=== PATIENT | female | born 1990 | race Caucasian/White ===

== ENCOUNTER 2017-09-08 13:51 | Emergency (ER) | payer OTHER ==
[2017-09-08 16:01] LABS: Appearance,Urine Cloudy (Clear); Bacteria,Urine Rare /hpf; Bilirubin,Urine Negative (Negative); Glucose,Urine (UA) Negative (Negative); Ketones,Urine Negative (Negative); Leukocyte Esterase,Urine Negative (Negative); Mucus,Urine Few /hpf; Nitrite,Urine Negative (Negative); PH, Urine 6.5 (5.0-8.0); Particle Count 9708; Protein,Urine Negative (Negative); RBC,Urine 1 /hpf (0-5); Specific Gravity,Urine 1.019 (1.001-1.035); Squamous Epithelial Cell,Urine 13 /hpf (0-4); UA Billing (MACRO vs. MICRO) MICRO; WBC,Urine <1 /hpf (0-5)
--- NOTE | 2017-09-08 17:43 | US ---
EXAMINATION TYPE: US transvaginal DATE OF EXAM: 09/08/2017 COMPARISON: Previous study dated 01/15/2009. CLINICAL HISTORY: Pain. TECHNIQUE: Transvaginal (TV) Date of LMP: 08/06/2017 EXAM MEASUREMENTS: Uterus: 7.8 x 4.3 x 5.7 cm Endometrial Stripe: 1.0 cm Right Ovary: 3.9 x 1.4 x 3.1 cm Left Ovary: 3.6 x 2.5 x 3.3 cm 1. Uterus: Anteverted wnl 2. Endometrium: appears wnl 3. Right Ovary: wnl 4. Left Ovary: cystic area visualized measuring 2.0 x 1.8 x 1.7cm Spectral, color and waveform doppler imaging shows good arterial and venous flow within the ovaries ; there is no evidence for ovarian torsion. 5. Bilateral Adnexa: wnl 6. Posterior cul-de-sac: wnl Left ovarian cystica area seen measuring 2.0 x 1.8 x 1.7 cm IMPRESSION: LEFT OVARIAN CYST.
[2017-09-08] MEDS ORDERED: KETOROLAC 30 MG/ML 1 ML VIAL IVP STA (17:55)
[2017-09-08] MEDS ORDERED: HYDROcodone/APAP 5-325MG 1 EACH TAB PO STA (18:03)
--- NOTE | 2017-09-08 18:40 | ED ---
Abdominal Pain HPI - General Chief Complaint: Abdominal Pain Stated Complaint: Pain in right abdomen Time Seen by Provider: 09/08/17 15:10 Source: patient Mode of arrival: ambulatory Limitations: no limitations - History of Present Illness Initial Comments: 27-year-old female presenting for evaluation of right lower quadrant abdominal pain/pelvic pain for the last 4 days. She states she has been having this pain chronically for months however it is acutely worsening over the last 4 days and is further worsened by lifting, coughing, sneezing. She describes it as a sharp burning with intermittent stabbing pain. There is associated nausea but she denies any vomiting, fevers, chills, chest pain, shortness of breath, vaginal bleeding/discharge, dysuria. She is taking Motrin without relief. She has had previous tubal ligation which resulted in cyst formation and had her ovarian tubes surgically removed. She also states that her surgeon at the time noted there was some abnormality on her bowel but it was on able to describe it or remember its technical definition. - Related Data Home Medications Medication Instructions Recorded Confirmed Cyanocobalamin [Vitamin B-12] 500 mcg PO DAILY 09/08/17 09/08/17 Dextroamphetamine/Amphetamine 30 mg PO BID 09/08/17 09/08/17 [Adderall] traMADol HCL [Ultram] 50 mg PO TID 09/08/17 09/08/17 Previous Rx's Medication Instructions Recorded Ibuprofen [Motrin] 800 mg PO Q12HR #30 tab 09/08/17 Allergies Allergy/AdvReac Type Severity Reaction Status Date / Time amoxicillin Allergy Rash/Hives Verified 09/08/17 15:42 erythromycin base Allergy Dyspnea Verified 09/08/17 15:42 Pork/Porcine Containing Allergy Unknown Verified 09/08/17 15:42 Products [Pork] latex AdvReac Rash/Hives Verified 09/08/17 15:42 Review of Systems ROS Statement: Those systems with pertinent positive or pertinent negative responses have been documented in the HPI. ROS Other: All systems not noted in ROS Statement are negative. Constitutional: Denies: fever, chills Eyes: Denies: eye pain, vision change ENT: Denies: ear pain, throat pain Respiratory: Denies: cough, dyspnea Cardiovascular: Denies: chest pain, palpitations Endocrine: Denies: fatigue, polydipsia Gastrointestinal: Reports: abdominal pain, nausea. Denies: vomiting, diarrhea, constipation, hematemesis, melena, hematochezia Genitourinary: Denies: urgency, dysuria Musculoskeletal: Denies: back pain, arthralgia, myalgia Skin: Denies: rash, lesions Neurological: Denies: headache, weakness Psychiatric: Denies: anxiety, depression Hematological/Lymphatic: Denies: easy bleeding, easy bruising Past Medical History Past Medical History: Fibromyalgia History of Any Multi-Drug Resistant Organisms: None Reported Additional Past Surgical History / Comment(s): bilateral fallopian tubes removed Past Psychological History: No Psychological Hx Reported Smoking Status: Never smoker Past Alcohol Use History: None Reported Past Drug Use History: None Reported General Exam Limitations: no limitations General appearance: alert, in no apparent distress Head exam: Present: atraumatic, normocephalic, normal inspection Eye exam: Present: normal appearance, PERRL, EOMI. Absent: scleral icterus, conjunctival injection, periorbital swelling ENT exam: Present: normal exam, mucous membranes moist Neck exam: Present: normal inspection. Absent: tenderness, meningismus, lymphadenopathy Respiratory exam: Present: normal lung sounds bilaterally. Absent: respiratory distress, wheezes, rales, rhonchi, stridor Cardiovascular Exam: Present: regular rate, normal rhythm, normal heart sounds. Absent: systolic murmur, diastolic murmur, rubs, gallop, clicks GI/Abdominal exam: Present: soft, tenderness (RLQ/pelvic), normal bowel sounds. Absent: distended, guarding, rebound, rigid, diminished bowel sounds, organomegaly, mass, bruit, pulsatile mass, hernia Rectal exam: Present: deferred Extremities exam: Present: normal inspection, full ROM, normal capillary refill. Absent: tenderness, pedal edema, joint swelling, calf tenderness Back exam: Present: normal inspection Neurological exam: Present: alert, oriented X3, CN II-XII intact Psychiatric exam: Present: normal affect, normal mood Skin exam: Present: warm, dry, intact, normal color. Absent: rash Course Vital Signs 09/08/17 09/08/17 13:59 18:30 Temperature 97.4 F L 98.5 F Pulse Rate 85 72 Respiratory 18 16 Rate Blood Pressure 116/64 102/57 O2 Sat by Pulse 100 100 Oximetry Medical Decision Making - Medical Decision Making 27-year-old female presented for evaluation of right lower quadrant/ pelvic pain. Pain is been present for the last few months however acutely worsened over the last 4 days. Patient indicates that the pain is below her panty line in her pelvis and on physical exam the pain is reproducible to palpation. Abdomen is soft without peritoneal signs of guarding, rigidity, or rebound. Patient is in no apparent distress and vitals are within normal limits. Urinalysis is negative for infection and is also negative. Ultrasound of pelvis shows a left ovarian cyst however there is appropriate flow to bilateral kidneys. The patient was reevaluated and had improvement in her symptoms. She was informed of these results and through shared decision making it was determined that she would be discharged. She was advised to follow-up with the primary care physician that would be provided for her but was further given instructions to return if her symptoms should worsen or persist including but not limited to: Worsening abdominal pain, intractable nausea vomiting, fevers/chills, abdominal distention, change in location of her pain, persistent diarrhea or constipation. The patient acknowledged an understanding of all information provided and agreed with this plan of care. - Lab Data Lab Results 09/08/17 09/08/17 Range/Units 15:43 15:43 Urine Color Yellow Urine Appearance Cloudy H (Clear) Urine pH 6.5 (5.0-8.0) Ur Specific [place] 1.019 (1.001-1.035) Urine Protein Negative (Negative) Urine Glucose (UA) Negative (Negative) Urine Ketones Negative (Negative) Urine Blood Negative (Negative) Urine Nitrite Negative (Negative) Urine Bilirubin Negative (Negative) Urine Urobilinogen 3.0 (<2.0) mg/dL Ur Leukocyte Esterase Negative (Negative) Urine RBC 1 (0-5) /hpf Urine WBC <1 (0-5) /hpf Ur Squamous Epith Cells 13 H (0-4) /hpf Urine Bacteria Rare H (None) /hpf Urine Mucus Few H (None) /hpf Urine HCG, Qual Not Detected (Not Detectd) Disposition Clinical Impression: Abdominal pain Disposition: HOME SELF-CARE Condition: Stable Instructions: Abdominal Pain (ED) Additional Instructions: Please use medication as discussed. Please follow up with family doctor if symptoms have not improved over the next two days. Please return to the emergency room if your symptoms increase or worsen or for any other concerns. Prescriptions: Ibuprofen [Motrin] 800 mg PO Q12HR #30 tab Referrals: None,Stated [Primary Care Provider] - 1-2 days Time of Disposition: 18:40
[2017-09-08 18:47] VITALS: BP 102/57; PULSE 72; RESP 16; TEMP 98.5
== END 2017-09-08 18:45 | disposition home or self-care (01) ==
LOC: EC 13:51
DX: R10.31 Right lower quadrant pain (principal); R11.0 Nausea; N83.202 Unspecified ovarian cyst, left side; Z88.0 Allergy status to penicillin; Z88.1 Allergy status to other antibiotic agents; Z91.040 Latex allergy status; Z91.018 Allergy to other foods; Z79.891 Long term (current) use of opiate analgesic; Z53.8 Procedure and treatment not carried out for other reasons; Z79.899 Other long term (current) drug therapy
CPT/HCPCS: 76830; 81001; 81025; 93975; 99284

== ENCOUNTER 2018-08-23 22:14 | Emergency (ER) | payer OTHER ==
[2018-08-23 22:26] VITALS: RESP 18; TEMP 98.2
[2018-08-23] MEDS ORDERED: NITROFURANTOIN MONOHYD/M-CRYST 100 MG CAP PO STA (23:17)
[2018-08-23] MEDS ORDERED: PHENAZOPYRIDINE 100 MG TAB PO STA (23:17)
--- NOTE | 2018-08-23 23:23 | ED ---
Female Urogenital HPI - General Chief complaint: Urogenital Stated complaint: Blood in urine Time Seen by Provider: 08/23/18 22:29 Source: patient Mode of arrival: ambulatory Limitations: no limitations - History of Present Illness Initial comments: On him is a previously healthy 28-year-old female who presents the ER today for evaluation of 2 days of dysuria, urinary frequency, hesitancy, hematuria and passing clots in her urine. Patient reports that she had one urinary tract infection as a child but none as an adult. She is in a monogamous relationship with her with no concern for sexual transmitted infections. She reports that 2 days ago she began having urinary frequency and noted some blood in her urine. She's been drinking plenty of fluids trying to just flushed out but her symptoms have progressively worsened. Today she discussed her symptoms with her and her mother who encouraged her to come to the ER for evaluation. Patient does have mild right-sided flank pain but denies any fevers , chills, nausea, vomiting. Last Menstrual Period: 08/17/18 - Related Data Home Medications Medication Instructions Recorded Confirmed Dextroamphetamine/Amphetamine 30 mg PO BID 09/08/17 08/23/18 [Adderall] traMADol HCL [Ultram] 50 - 100 mg PO TID PRN 09/08/17 08/23/18 Acetaminophen Tab [Tylenol Tab] 650 mg PO Q6H PRN 08/23/18 08/23/18 Ibuprofen [Motrin Ib] 200 - 400 mg PO Q6H PRN 08/23/18 08/23/18 Previous Rx's Medication Instructions Recorded Nitrofurantoin Monohyd/M-Cryst 100 mg PO Q12HR #10 cap 08/23/18 [Macrobid] Phenazopyridine HCl [Pyridium] 100 mg PO TID #6 tab 08/23/18 Allergies Allergy/AdvReac Type Severity Reaction Status Date / Time amoxicillin Allergy Rash/Hives Verified 08/23/18 23:13 erythromycin base Allergy Dyspnea Verified 08/23/18 23:13 Pork/Porcine Containing Allergy Unknown Verified 08/23/18 23:13 Products [Pork] latex AdvReac Rash/Hives Verified 08/23/18 23:13 Review of Systems ROS Statement: Those systems with pertinent positive or pertinent negative responses have been documented in the HPI. ROS Other: All systems not noted in ROS Statement are negative. Past Medical History Past Medical History: Fibromyalgia History of Any Multi-Drug Resistant Organisms: None Reported Additional Past Surgical History / Comment(s): bilateral fallopian tubes removed Past Psychological History: No Psychological Hx Reported Smoking Status: Current every day smoker Past Alcohol Use History: None Reported Past Drug Use History: None Reported General Exam - General Exam Comments Initial Comments: Physical Exam GENERAL: Patient is well-developed and well-nourished. Patient is nontoxic and well- hydrated and is in no distress. HENT: Normocephalic, Atraumatic. EYES: PERRL, EOMI PULMONARY: Unlabored respirations. No audible rales rhonchi or wheezing was noted. CARDIOVASCULAR: There is a regular rate and rhythm without any murmurs gallops or rubs. ABDOMEN: Soft with normal bowel sounds. Tenderness to palpation in the suprapubic region SKIN: Skin is clear with no lesions or rashes and otherwise unremarkable. : Deferred - patient declined pelvic exam NEUROLOGIC: Patient is alert and oriented x3. Moving all extremities spontaneously MUSCULOSKELETAL: Normal extremities with adequate strength and full range of motion. No lower extremity swelling or edema. No calf tenderness. PSYCHIATRIC: Normal psychiatric evaluation. Limitations: no limitations Limitations: no limitations Course Vital Signs 08/23/18 08/23/18 22:25 23:51 Temperature 98.2 F Pulse Rate 85 84 Respiratory 18 18 Rate Blood Pressure 112/67 98/58 O2 Sat by Pulse 100 99 Oximetry Medical Decision Making - Medical Decision Making Patient was seen and examined, history is concerning for urinary tract infection Urinalysis and urine were ordered First dose of Macrobid and Pyridium were ordered and administered Analysis is consistent with a urinary tract infection. Considering this is patient's first infection and number of years it is an uncomplicated infection I see no indication for culture and I will treat with Macrobid. Return parameters were discussed all questions pertaining care were answered best my ability patient was discharged home with prescription for Macrobid and Pyridium. - Lab Data Lab Results 08/23/18 08/23/18 Range/Units 22:50 22:50 Urine Color Yellow Urine Appearance Turbid H (Clear) Urine pH 5.5 (5.0-8.0) Ur Specific [place] 1.018 (1.001-1.035) Urine Protein 1+ H (Negative) Urine Glucose (UA) Negative (Negative) Urine Ketones Negative (Negative) Urine Blood Large H (Negative) Urine Nitrite Negative (Negative) Urine Bilirubin Negative (Negative) Urine Urobilinogen <2.0 (<2.0) mg/dL Ur Leukocyte Esterase Large H (Negative) Urine RBC 91 H (0-5) /hpf Urine WBC >182 H (0-5) /hpf Urine WBC Clumps Many H (None) /hpf Ur Squamous Epith Cells 4 (0-4) /hpf Urine Bacteria Moderate H (None) /hpf Urine Mucus Few H (None) /hpf Urine HCG, Qual Not Detected (Not Detectd) Disposition Clinical Impression: Urinary tract infection Disposition: HOME SELF-CARE Instructions: Urinary Tract Infection in Women (ED) Prescriptions: Nitrofurantoin Monohyd/M-Cryst [Macrobid] 100 mg PO Q12HR #10 cap Phenazopyridine HCl [Pyridium] 100 mg PO TID #6 tab Is patient prescribed a controlled substance at d/c from ED?: No Referrals: Thad Kilpatrick MD [Primary Care Provider] - 1-2 days
[2018-08-23 23:30] LABS: Appearance,Urine Turbid (Clear); Bacteria,Urine Moderate /hpf; Bilirubin,Urine Negative (Negative); Blood,Urine Large (Negative); Color,Urine Yellow; Glucose,Urine (UA) Negative (Negative); Ketones,Urine Negative (Negative); Leukocyte Esterase,Urine Large (Negative); Mucus,Urine Few /hpf; Nitrite,Urine Negative (Negative); PH, Urine 5.5 (5.0-8.0); Protein,Urine 1+ (Negative); RBC,Urine 91 /hpf (0-5); Specific Gravity,Urine 1.018 (1.001-1.035); Squamous Epithelial Cell,Urine 4 /hpf (0-4); Urobilinogen,Urine <2.0 mg/dL (<2.0); WBC,Urine >182 /hpf (0-5)
[2018-08-23 23:52] VITALS: BP 98/58; PULSE 84
== END 2018-08-23 23:51 | disposition home or self-care (01) ==
LOC: EC 22:14
DX: N39.0 Urinary tract infection, site not specified (principal); M79.7 Fibromyalgia; F17.200 Nicotine dependence, unspecified, uncomplicated; Z79.899 Other long term (current) drug therapy; Z88.0 Allergy status to penicillin; Z88.1 Allergy status to other antibiotic agents; Z91.040 Latex allergy status; Z91.048 Other nonmedicinal substance allergy status
CPT/HCPCS: 81001; 81025; 99283

== ENCOUNTER 2022-07-14 09:12 | Day surgery (SDC) | payer OTHER ==
[2022-07-12 10:23] VITALS: BMI 17.3
--- NOTE | 2022-07-14 08:52 | P.GSHP ---
History of Present Illness H&P Date: 07/14/22 CHIEF COMPLAINT: GERD and change in bowel habits HISTORY OF PRESENT ILLNESS: The patient is a 32-year-old male who presents with gastroesophageal reflux disease and change in bowel habits. Upper and lower endoscopy were offered for further evaluation and management. PAST MEDICAL HISTORY: Please see list. PAST SURGICAL HISTORY: Please see list. MEDICATIONS: Please see list. ALLERGIES: Please see list. SOCIAL HISTORY: No illicit drug use FAMILY HISTORY: Pertinent for colon cancer and colitis REVIEW OF ORGAN SYSTEMS: CONSTITUTIONAL: No reports of fevers or chills. PHYSICAL EXAM: VITAL SIGNS: Stable GENERAL: Well-developed pleasant in no acute distress. HEENT: No scleral icterus. Extraocular movements grossly intact. Moist buccal mucosa. NECK: Supple without lymphadenopathy. CHEST: Unlabored respirations. Equal bilateral excursions. CARDIOVASCULAR: Regular rate and rhythm. Distal 2+ pulses. ABDOMEN: Soft, nondistended. MUSCULOSKELETAL: No clubbing, cyanosis, or edema. ASSESSMENT: 1. Gastroesophageal reflux disease 2. Change in bowel habits. PLAN: 1. Recommend proceeding with an upper and lower endoscopy Past Medical History Past Medical History: Asthma, Fibromyalgia Additional Past Medical History / Comment(s): IBS w/ constipation,diverticulosis,hypoglycemic History of Any Multi-Drug Resistant Organisms: None Reported Additional Past Surgical History / Comment(s): bilateral fallopian tubes removed Past Anesthesia/Blood Transfusion Reactions: Family History of Problems w/ Anesthesia, Motion Sickness Additional Past Anesthesia/Blood Transfusion Reaction / Comment(s): takes along time to wake up with anesthesia. mom takes along time to wake up as well Smoking Status: Current every day smoker, Vaper - Past Family History Mother Family Medical History: No Reported History Medications and Allergies Home Medications Medication Instructions Recorded Confirmed Type Albuterol Inhaler [Ventolin Hfa 1 - 2 puff INHALATION Q6H PRN 07/12/22 07/12/22 History Inhaler] Allergies Allergy/AdvReac Type Severity Reaction Status Date / Time amoxicillin Allergy Rash/Hives Verified 07/12/22 10:16 erythromycin base Allergy Dyspnea Verified 07/12/22 10:16 Pork/Porcine Containing Allergy Unknown Verified 07/12/22 10:16 Products [Pork] latex AdvReac Rash/Hives Verified 07/12/22 10:16
[~2022-07-14 09:12] MED LIST: LACTATED RINGERS 1,000 ML IV SCH
[2022-07-14] MEDS ORDERED: LIDOCAINE 1% (10MG/ML) FOR IV START INTRADERMA ONE (09:50)
[2022-07-14 09:56] VITALS: TEMP 98.7
[2022-07-14 10:01] LABS: Glucose,Whole Blood 82 mg/dL (70-110)
[2022-07-14] MEDS ORDERED: ATROPINE SULFATE 0.1 MG/ML 10ML SYRINGE ONE (10:23)
[2022-07-14] MEDS ORDERED: PROPOFOL 10 MG/ML 20 ML VIAL IV ONE (10:23)
[2022-07-14] MEDS ORDERED: IV FLUID CONTINUATION 1,000 ML IV ONE (10:56)
--- NOTE | 2022-07-14 11:00 | P.PCN ---
Date of Procedure: 07/14/22 Description of Procedure: PREOPERATIVE DIAGNOSIS: Gastroesophageal reflux disease. POSTOPERATIVE DIAGNOSIS: Gastroesophageal reflux disease. Gastritis with bleeding OPERATION: Esophagogastroduodenoscopy with biopsies along antrum. SURGEON: Marianne Ram MD ANESTHESIA: MAC. INDICATIONS: The patient is a 32-year-old female who presents with reflux disease. Benefits and risks of the procedure were described. Informed consent was obtained. DESCRIPTION: The patient was brought into the endoscopy suite and laid in the left lateral decubitus position. An Olympus gastroscope was passed along the posterior oropharynx down to the distal esophagus where the squamocolumnar junction was encountered at 40 cm from the incisors. The stomach was entered and no bile reflux was found. Additional findings are listed below. Biopsies with cold forceps were obtained of the antrum. The first through third portion of the duodenum was examined. Retroflexion of the scope confirmed Hill grade 2 lower esophageal valve. The squamocolumnar junction demonstrated LA grade B erosive esophagitis. The stomach was desufflated. The patient tolerated the procedure well. FINDINGS: Squamocolumnar junction 40 cm from the incisors. Diaphragmatic hiatus at 40 cm. Hill grade 2 lower esophageal valve. LA grade B erosive esophagitis. Biopsies obtained of duodenum for celiac disease Chronic gastritis with recent bleed RECOMMENDATIONS: Upper endoscopy as needed.
--- NOTE | 2022-07-14 11:12 | P.PCN ---
Date of Procedure: 07/14/22 Description of Procedure: PREOPERATIVE DIAGNOSIS: Change in bowel habits Family history colon cancer History of colitis POSTOPERATIVE DIAGNOSIS: Change in bowel habits Family history colon cancer History of colitis OPERATION: Colonoscopy to the cecum, ileocecal valve and appendiceal orifice. Colonoscopy with random cold forceps biopsies for history of colitis SURGEON: Marianne Ram MD. ANESTHESIA: MAC. INDICATIONS: The patient is a 32-year-old female who presents with change in bowel habits, h istory of colitis and family history of colon cancer. Benefits and risks were described and informed consent was obtained. DESCRIPTION OF PROCEDURE: The patient had undergone Sutab prep. The patient had been brought into the operating room and laid in the left lateral decubitus position. After adequate intravenous sedation, the rectum was examined with 2% lidocaine jelly. No external hemorrhoids were encountered. The rectal tone was within normal limits. No lesions were palpated in the rectal vault. An Olympus colonoscope was advanced until the cecum, ileocecal valve and appendiceal orifice were clearly viewed. The prep was excellent. Scattered diverticulosis was encountered. No colonic polyps were found. Random cold forceps biopsies are obtained for history of colitis and change in bowel habits. Retroflexion of the scope demonstrated grade 1 internal hemorrhoids without active bleeding or inflammation. The colon was desufflated. The patient had tolerated the procedure well. Withdrawal time was over 6 minutes. FINDINGS: Aronchick preparation quality scale (1-5) Internal hemorrhoids, grade 1 No external prolapsed hemorrhoids. No arteriovenous malformations. No adenomatous polyps. Random biopsies obtained for history of colitis Highly redundant sigmoid colon requiring abdominal wall pressure RECOMMENDATIONS: Lower endoscopy as needed Plan - Discharge Summary Discharge Rx Participant: No New Discharge Prescriptions: Continue Albuterol Inhaler [Ventolin Hfa Inhaler] 1 - 2 puff INHALATION Q6H PRN PRN Reason: sob Discharge Medication List Albuterol Inhaler [Ventolin Hfa Inhaler] 1 - 2 puff INHALATION Q6H PRN 07/12/22 [History] Follow up Appointment(s)/Referral(s): Marianne Ram MD [STAFF PHYSICIAN] - 07/27/22 Patient Instructions/Handouts: Gastritis (DC), *Surgery [facility] - (Anesthesia) Endoscopy Discharge Instructions, Colonoscopy (DC), Upper Endoscopy (DC) Discharge Disposition: HOME SELF-CARE
[2022-07-14 11:18] VITALS: BP 110/70; PULSE 93; RESP 16
== END 2022-07-14 12:03 | disposition home or self-care (01) ==
LOC: ORWHC2ENDO 09:12
PROVIDERS: ATTEND Surgery Plastic and Reconstructive Surgery
DX: K21.00 Gastro-esophageal reflux disease with esophagitis, without bleeding (principal); K29.51 Unspecified chronic gastritis with bleeding; K25.9 Gastric ulcer, unspecified as acute or chronic, without hemorrhage or perforation; K64.0 First degree hemorrhoids; K63.89 Other specified diseases of intestine; Z80.0 Family history of malignant neoplasm of digestive organs; J45.909 Unspecified asthma, uncomplicated; M79.7 Fibromyalgia; E16.2 Hypoglycemia, unspecified; Z79.51 Long term (current) use of inhaled steroids; Z88.1 Allergy status to other antibiotic agents; Z88.8 Allergy status to other drugs, medicaments and biological substances; Z91.014 Allergy to mammalian meats; Z91.040 Latex allergy status; F17.210 Nicotine dependence, cigarettes, uncomplicated; Z87.19 Personal history of other diseases of the digestive system
CPT/HCPCS: 88305; 45380; 43239; J0461; J2704

== ENCOUNTER → 2022-08-10 | Outpatient (CLI) | payer OTHER ==
--- NOTE | 2022-08-10 11:31 | US ---
EXAMINATION TYPE: US gallbladder DATE OF EXAM: 08/10/2022 COMPARISON: NONE CLINICAL HISTORY: R10.11 RIGHT UPPER QUADRANT PAIN. RUQ pain. Patient states she is unable to eat an d has lost 30 lbs. TECHNIQUE: Multiple sonographic images of the right upper quadrant are obtained. FINDINGS: EXAM MEASUREMENTS: Liver Length: 14.7 cm Gallbladder Wall: 0.1 cm CBD: 0.3 cm Right Kidney: 10.2 x 5.6 x 4.6 cm Pancreas: wnl Liver: wnl Gallbladder: wnl Evidence for sonographic Baugh's sign: neg CBD: wnl Right Kidney: No hydronephrosis or masses seen IMPRESSION: No evidence of acute process. No evidence of cholelithiasis.
== END ==
LOC: RADUSWWP 08:01
PROVIDERS: ATTEND Surgery Plastic and Reconstructive Surgery
DX: R10.11 Right upper quadrant pain (principal)
CPT/HCPCS: 76705

== ENCOUNTER → 2022-08-12 | Outpatient (CLI) | payer OTHER ==
--- NOTE | 2022-08-12 18:34 | NM ---
EXAMINATION TYPE: NM hepatobiliary wo EF DATE OF EXAM: 08/12/2022 COMPARISON: Ultrasound 08/10/2022 HISTORY: R 10.11 TECHNIQUE: After the intravenous administration of 3.8 mCi Tc 99m Mebrofenin hepatobiliary scintigrap hy is performed. Immediate images post injection. FINDINGS: There is prompt homogenous uptake of the radiopharmaceutical within the liver. Biliary activity is id entified by 2 minutes. Small bowel uptake identified by 2 minutes. Gallbladder is not seen over the c ourse of the exam and despite delayed imaging. IMPRESSION: Findings consistent with cystic duct obstruction, correlate for possible cholecystitis.
== END | disposition home or self-care (01) ==
LOC: RADNMMAIN 13:01
PROVIDERS: ATTEND Surgery Plastic and Reconstructive Surgery
DX: R10.11 Right upper quadrant pain (principal)
CPT/HCPCS: 78226; A9537

== ENCOUNTER 2022-08-19 10:14 | Day surgery (SDC) | payer OTHER ==
[2022-08-17 12:41] VITALS: BMI 17.6
--- NOTE | 2022-08-19 08:28 | P.GSHP ---
History of Present Illness H&P Date: 08/19/22 CHIEF COMPLAINT: Cholecystitis HISTORY OF PRESENT ILLNESS: The patient is a 32-year-old female who presents with history of epigastric including right upper quadrant abdominal pain. She underwent diagnostic studies for her gallbladder. Separately her clinical picture was consistent with cholecystitis. Now she presents for surgical intervention. PAST MEDICAL HISTORY: Please see list PAST SURGICAL HISTORY: Please see list MEDICATIONS: Please see list ALLERGIES: Please see list SOCIAL HISTORY: Please see list FAMILY HISTORY: Please see list REVIEW OF ORGAN SYSTEMS: CONSTITUTIONAL: No reports of fevers or chills. HEENT: Denies any troubles with the vision or hearing. ENDOCRINE: No reports of hypothyroidism. No diabetes. RESPIRATORY: No recent pneumonias. CARDIOVASCULAR: Denies chest pain or palpitations GI: No blood in stools or constipation. MUSCULOSKELETAL: Has occasional joint pain including back pain. NEURO: No seizure disorders or headaches. No recent stroke. PSYCH: No depression or suicidal ideation. GENITOURINARY: No active blood in urine. No urinary hesitancy. HEMATOLOGIC: No personal or family history of DVTs or pulmonary emboli. SKIN: No skin cancer. PHYSICAL EXAM: VITAL SIGNS: Afebrile vital signs stable GENERAL: Well-developed pleasant in no acute distress. HEENT: No scleral icterus. Extraocular movements grossly intact. Moist buccal mucosa. NECK: Supple without lymphadenopathy. CHEST: Unlabored respirations. Equal bilateral excursions. CARDIOVASCULAR: Regular rate regular rhythm rhythm. Distal 2+ pulses. ABDOMEN: Soft, nondistended. Tender along the epigastrium and right upper quadrant. MUSCULOSKELETAL: No clubbing, cyanosis, or edema. NEURO: Cranial nerves II to XII within normal limits. No focal or lateralizing signs. PSYCH: Alert and oriented to person, place and time. SKIN: Well-perfused good skin turgor. ASSESSMENT: 1. Epigastric and right upper quadrant abdominal pain 2. Chronic cholecystitis 3. Symptomatic gallstones. PLAN: 1. Will need a robotic cholecystectomy possible open. Benefits and risks were described. 2. Heparin for DVT prophylaxis 5000 units. 3. Antibiotic prophylaxis. Past Medical History Past Medical History: Asthma, Fibromyalgia Additional Past Medical History / Comment(s): IBS w/ constipation,diverticulosis,hypoglycemic. GALLBLADDER DISORDER History of Any Multi-Drug Resistant Organisms: None Reported Past Surgical History: Tubal Ligation Additional Past Surgical History / Comment(s): bilateral fallopian tubes LIGATON 2009 THEN REMOVED 2017. COLONOSCOPY/EGD Past Anesthesia/Blood Transfusion Reactions: Family History of Problems w/ Anesthesia, Motion Sickness Additional Past Anesthesia/Blood Transfusion Reaction / Comment(s): takes along time to wake up with anesthesia. mom takes along time to wake up as well Smoking Status: Former smoker, Vaper - Past Family History Mother Family Medical History: No Reported History Medications and Allergies Home Medications Medication Instructions Recorded Confirmed Type Albuterol Inhaler [Ventolin Hfa 1 - 2 puff INHALATION Q6H PRN 07/12/22 08/17/22 History Inhaler] Allergies Allergy/AdvReac Type Severity Reaction Status Date / Time amoxicillin Allergy Rash/Hives Verified 08/17/22 12:31 erythromycin base Allergy Dyspnea Verified 08/17/22 12:31 Pork/Porcine Containing Allergy Nausea & Verified 08/17/22 12:31 Products Vomiting & [Pork] Diarrhea latex AdvReac Rash/Hives Verified 08/17/22 12:31
[~2022-08-19 10:14] MED LIST changes: +ACETAMINOPHEN TAB 500 MG TAB PO STA; +GABAPENTIN 300 MG CAP PO STA; +HEPARIN SODIUM,PORCINE/PF 5,000 UNIT/0.5 ML SYRINGE SQ PRN; +INDOCYANINE GREEN 25 MG VIAL IV STA; -LACTATED RINGERS 1,000 ML IV SCH; +MELOXICAM 7.5 MG TAB PO SCH; +SCOPOLAMINE 1 MG/72 HR PATCH TRANSDERM STA
[2022-08-19] MEDS ORDERED: LACTATED RINGERS 1,000 ML IV ONE ×2 (10:54→13:23)
[2022-08-19] MEDS ORDERED: DEXAMETHASONE SOD PHOSPHATE 4 MG/ML 1 ML VIAL IVP ONE (10:59)
[2022-08-19] MEDS ORDERED: ONDANSETRON 4 MG/2 ML VIAL IVP ONE ×2 (10:59→13:39)
[2022-08-19 11:05] LABS: Basophils % (A) 1 %; Eosinophils # (A) 0.1 k/uL (0-0.7); Eosinophils % (A) 2 %; HCT 38.6 % (34.0-46.0); HGB 13.3 gm/dL (11.4-16.0); Lymphocytes # (A) 1.4 k/uL (1.0-4.8); Lymphocytes % (A) 32 %; MCH 31.2 pg (25.0-35.0); MCHC 34.4 g/dL (31.0-37.0); MCV 90.7 fL (80.0-100.0); Mean Platelet Volume 9.5; Monocytes # (A) 0.3 k/uL (0-1.0); Monocytes % (A) 6 %; Neutrophils # (A) 2.6 k/uL (1.3-7.7); Neutrophils % (A) 59 %; Platelet Count 188 k/uL (150-450); RBC 4.25 m/uL (3.80-5.40); RDW 12.2 % (11.5-15.5); WBC 4.4 k/uL (3.8-10.6)
[2022-08-19] MEDS ORDERED: MIDAZOLAM 2 MG/2 ML VIAL IVP ONE (11:05)
[2022-08-19 11:21] LABS: ALT 16 U/L (4-34); AST 20 U/L (14-36); African American GFR (CKD) >90 (>60 ml/min/1.73 sqM); Albumin 4.8 g/dL (3.5-5.0); Alkaline Phosphatase 45 U/L (38-126); Anion Gap 11 mmol/L; Blood Urea Nitrogen 16 mg/dL (7-17); Calcium 9.3 mg/dL (8.4-10.2); Carbon Dioxide 26 mmol/L (22-30); Chloride 100 mmol/L (98-107); Glucose 90 mg/dL (74-99); Non-African American GFR(CKD) >90 (>60 ml/min/1.73 sqM); Potassium 4.1 mmol/L (3.5-5.1); Sodium 137 mmol/L (137-145); Total Bilirubin 0.4 mg/dL (0.2-1.3); Total Protein 7.3 g/dL (6.3-8.2)
[2022-08-19] MEDS ORDERED: PROPOFOL 10 MG/ML 20 ML VIAL IV ONE (11:46)
[2022-08-19] MEDS ORDERED: MIDAZOLAM 2 MG/2 ML VIAL ONE (11:46)
[2022-08-19] MEDS ORDERED: INDOCYANINE GREEN 25 MG VIAL IV ONE (11:46)
[2022-08-19] MEDS ORDERED: LIDOCAINE 2% INJ 20 MG/ML (2 ML VIAL) ONE (11:46)
[2022-08-19] MEDS ORDERED: ROCURONIUM 10 MG/ML (5 ML VIAL) IV ONE (11:46)
[2022-08-19] MEDS ORDERED: NEOSTIGMINE 1 MG/ML 10 ML VIAL ONE (11:46)
[2022-08-19] MEDS ORDERED: fentaNYL (PF) 50 MCG/ML 2 ML AMP ONE (11:46)
[2022-08-19] MEDS ORDERED: GLYCOPYRROLATE 0.2 MG/ML 2 ML VIAL ONE (11:46)
[2022-08-19] MEDS ORDERED: LIDOCAINE 1%-EPI 1:100,000 20 ML VIAL SQ ONE (12:09)
[2022-08-19 12:51] VITALS: TEMP 97.2
[2022-08-19] MEDS ORDERED: HYDROmorphone 0.5 MG/0.5 ML SYRINGE IVP ONE ×4 (13:07→13:38)
--- NOTE | 2022-08-19 13:18 | P.OP ---
Date of Procedure: 08/19/22 Description of Procedure: SURGEON: MARIANNE RAM MD PREOPERATIVE DIAGNOSES: 1. Acute cholecystitis 2. Abnormal HIDA scan for acute cholecystitis 3. Right upper quadrant abdominal pain POSTOPERATIVE DIAGNOSES: 1. Acute cholecystitis 2. Abnormal HIDA scan for acute cholecystitis 3. Right upper quadrant abdominal pain 4. Peritoneal adhesions, right upper quadrant OPERATION: 1. Robotic-assisted da Arnaud Xi laparoscopic lysis of adhesions 2. Robotic-assisted da Arnaud Xi laparoscopic cholecystectomy, multiport with FIREFLY ESTIMATED BLOOD LOSS: 10 mL. SPECIMENS REMOVED: Gallbladder. COMPLICATIONS: None. OPERATIVE FINDINGS: 1. Moderate scarring over entire gallbladder with peritoneal adhesions, pericholecystic with features of chronic cholecystitis INDICATIONS: The patient is a 32-year-old female who presents with severe right upper quadrant abdominal pain and abnormal HIDA scan for acute cholecystitis Robotic assisted laparoscopic approach was described. Benefits and risks of the procedure including but not limited to bleeding, infection, injury to the biliar y tree was described. Informed consent was obtained. DESCRIPTION OF PROCEDURE: Patient was brought to the operating room, placed in supine position. After general induction, the abdomen had been prepped and draped in standard sterile fashion. The robotic da Arnaud XI system was primed. After a timeout protocol was performed, the patient had been prepped and draped in standard sterile fashion. The patient was injected with indocyanine green. A 5 mm 0 degrees laparoscopic trocar entry was performed along the left upper quadrant. The abdomen insufflated to 15 mmHg pressure which was tolerated well. Diagnostic laparoscopy demonstrated no injury to bowel viscera or mesentery. The liver surface was unremarkable. Next, two 8 mm robotic ports were placed along the right upper abdomen. The camera 8-mm port was maintained along the epigastrium. Another 8 mm port was placed along the left upper abdominal wall after exchanging the 5 mm port. Please note that the ports were placed at least 10 to 15 cm away from the target anatomy of the gallbladder. The robot was docked along the left lateral abdomen. The patient was repositioned in reverse Trendelenburg position. Using a grasper for arm 3, a grasper for arm 4, including hook cautery for arm 1, the robotic system was docked and primed as described. Instruments were interchanged by the bilingual sales assistant including hook cautery, Bovie cautery and clip appliers. I had sat at the console. The gallbladder was scarred with peritoneal adhesions. Lysis of adhesions was performed to free the gallbladder from the surrounding tissues. Next attention was brought to the infundibulum and cystic structures. The infundibulum and cystic duct were dissected free from surrounding tissues. The cystic duct was isolated. FIREFLY was used to identify the cystic artery and cystic structures. A critical view of safety was obtained. Large PLASTIC clips were used throughout the entire case. Using a clip washer engineer, 2 clips were placed at the junction of the infundibulum and cystic duct. The cystic duct was divided between clips. Next, the cystic artery was similarly clipped and cauterized. Electro-Bovie cautery was used to remove the gallbladder from the hepatic fossa. Hemostasis was checked and found to be adequate. One (1) 1 clip along the hepatic fossa remained. The robot was undocked. I re-scrubbed into the case. Using a 10 mm Endo Catch bag via the left upper quadrant incision, the specimen was removed from the abdominal cavity. All pneumoperitoneum instruments were evacuated from the abdominal cavity. The incisions were reapproximated using 4-0 Monocryl in an interrupted subcuticular fashion. Fascial defects were less than 8 mm in size. Please note along the trocar sites, local anesthetic was placed as a field block prior to insertion of all instruments. Liquid glue was applied to the skin. At the end of the procedure needle, sponge, and instrument count had been verified correct by the surgical instrument mechanic. The patient was transferred to postanesthesia care unit in stable condition. Intraoperative films were shared with the patient's family. Plan - Discharge Summary Discharge Rx Participant: Yes New Discharge Prescriptions: New Simethicone [Gas-X] 125 mg PO AC-TID PRN #20 capsule PRN Reason: Pain Ibuprofen [Motrin] 600 mg PO Q8HR PRN #30 tab PRN Reason: Pain Acetaminophen Tab [Tylenol Tab] 1,000 mg PO Q6HR PRN #30 tablet PRN Reason: Pain Continue Albuterol Inhaler [Ventolin Hfa Inhaler] 1 - 2 puff INHALATION Q6H PRN PRN Reason: sob Discharge Medication List Albuterol Inhaler [Ventolin Hfa Inhaler] 1 - 2 puff INHALATION Q6H PRN 07/12/22 [History] Acetaminophen Tab [Tylenol Tab] 1,000 mg PO Q6HR PRN #30 tablet 08/19/22 [Rx] Ibuprofen [Motrin] 600 mg PO Q8HR PRN #30 tab 08/19/22 [Rx] Simethicone [Gas-X] 125 mg PO AC-TID PRN #20 capsule 08/19/22 [Rx] Follow up Appointment(s)/Referral(s): Marianne Ram MD [STAFF PHYSICIAN] - 08/31/22 Patient Instructions/Handouts: *Surgery [facility] - Scopalamine Patch Instructions, Laparoscopic Cholecystectomy (DC), Low Fat Diet (DC) Activity/Diet/Wound Care/Special Instructions: Recommend low-fat diet for the next 2 days. No lifting over 10 pounds in 2 weeks until Sep 02. February shower. No bath tub soaks for two weeks until Sep 02. Diet as tolerated. Use Tylenol, simethicone and ibuprofen or Aleve scheduled for the next 24-48 hours for best pain relief. Use ice along incisions for today to prevent swelling. Discharge Disposition: HOME SELF-CARE
[2022-08-19] MEDS ORDERED: SIMETHICONE 80 MG CHEWABLE PO ONE (14:18)
[2022-08-19] MEDS ORDERED: IBUPROFEN 200 MG TAB PO ONE (14:18)
[2022-08-19 15:07] VITALS: BP 119/63; PULSE 82; RESP 18
== END 2022-08-19 15:50 | disposition home or self-care (01) ==
LOC: OR 10:14
PROVIDERS: ATTEND Surgery Plastic and Reconstructive Surgery
DX: K80.10 Calculus of gallbladder with chronic cholecystitis without obstruction (principal); K66.0 Peritoneal adhesions (postprocedural) (postinfection); Z79.51 Long term (current) use of inhaled steroids; Z79.899 Other long term (current) drug therapy; J45.909 Unspecified asthma, uncomplicated; M79.7 Fibromyalgia; Z98.51 Tubal ligation status; Z87.891 Personal history of nicotine dependence; Z88.1 Allergy status to other antibiotic agents
CPT/HCPCS: 47563; 81025; 88304; 80053; 85025; J2250; J1100; J2710; J0690; J2405; J3010; J2704; J1170; J2001